=== PATIENT | male | born 1995 | race Caucasian/White ===

== ENCOUNTER 2021-12-19 01:57 | Outpatient (CLI) | payer MEDICAID, SELFPAY ==
[2021-12-19 08:11] LABS: Source Nasal/Nares
[2021-12-19 13:19] LABS: COVID-19 PCR Negative (Negative)
== END 2021-12-19 01:58 | disposition home or self-care (01) ==
LOC: LBO 01:58
PROVIDERS: Visit Provider Surgery
DX: Z20.822 Contact with and (suspected) exposure to COVID-19 (principal); Z01.818 Encounter for other preprocedural examination
CPT/HCPCS: 87635

== ENCOUNTER 2021-12-20 09:08 | Day surgery (SDC) | payer MEDICAID, SELFPAY ==
--- NOTE | 2021-12-20 06:52 | ENDO_ITS ---
Date of service: 12/20/21 Time of Service: 09:38 Endoscopy Report DATE OF PROCEDURE: 12/20/21 PRE-OP DIAGNOSIS: Epigastric pain, N/V POST-OP DIAGNOSIS: other (duodenitis, gastritis and esophagitis) PROCEDURE: EGD with biopsies SURGEON: Celena Ryan ANESTHESIA TYPE: General:No Airway ESTIMATED BLOOD LOSS: 5 PATHOLOGY: other (duodenal, gastric and GE junction bx) COMPLICATIONS: None DISPOSITION: same day INDICATIONS: Go is a pleasant 26-year-old gentleman with a history of alcohol abuse and IV drug abuse who has been clean for 4 months.? He developed upper abdominal pain a few weeks back as well as some nausea and vomiting when he drinks alcohol or has fatty foods.? CT scan revealed no abnormalities.? Ultrasound showed a small amount of sludge in his gallbladder but no other signs of cholecystitis.? He was told that he had biliary dyskinesia.? He has not had a HIDA scan.? We went over the anatomy in detail and over the differential diagnosis.? On examination his pain is mostly epigastric.? With his alcohol use his pain could be from gastritis or gastric ulcers.? He could also have pain because of his hepatitis C. HIDA scan has been ordered. Because Bret would have to be off Methadone for 48 hours and he is at high risk for relapse I discussed with him doing an EGD first and if that is negative then pursuing the HIDA scan. The EGD proceedure was explained and questions were answered over the phone. Risks, benefits and complications were reviewed with him. Risks include but are not limited to bleeding, perforation, aspiration, and adverse reaction to the medications given. Questions were entertained and answered to his satisfaction and he wished to proceed. No guarantees were given or implied. FINDINGS: Inflammation of the duodenum, stomach and esopahgus. PROCEDURE DESCRIPTION: After informed consent was obtained the patient was take to the procedure room and placed in a supine position. Monitors were applied and a time out was done. The patients name, date of , procedure type, allergies to medications and metal in their body was reviewed. A bite block was placed and the patient was sedated. Once sedated and comfortable the gastroscope was advanced through the oropharynx which was grossly normal into the esophagus. The proximal and mid- esophagus were normal. In the distal esophagus there was moderate inflammation noted with a small ulcer. The scope was advanced into the stomach and through the pylorus into the 3rd portion of the duodenum. The duodenum was noted to be inflammaed in the first portion. Biopsies were done. The scope was retracted back into the stomach, were mild inflammation was noted, and biopsies were done to rule out H. pylori. There were no ulcers. The scope was retroflexed. The cardia and fundus were noted to be normal. There was no hiatal hernia noted. The scope was retracted back into the esophagus and biopsies were done of the GE junction to rule out Pal's. The Z line was regular. The GE junction was at 38 cm. The scope was removed and the patient was woken up and taken back to [facility] in stable condition. Follow up: 2 weeks
--- NOTE | 2021-12-20 06:53 | W.PM.DSUDISC ---
Discharge Plan Disposition Patient Disposition: HOME Condition: Good Discharge Details Reason For Visit: Epigastric pain Attending Provider: Celena Ryan Primary Care Provider: Unknown,Unknown Home Meds and New Rx's Prescriptions: New omeprazole 40 mg capsule,delayed release(DR/EC) 40 mg PO BID Qty: 90 0RF sucralfate [Carafate] 1 gram tablet 1 g PO Q6H Qty: 56 0RF Rx Instructions: Take 1 tab 30 minutes before meals and before bedtime Continued methadone 40 mg tablet,soluble 100 mg PO DAILY Discharge Instructions Instructions: Duodenitis (DC), Gastritis (DC), Esophagitis (DC), Diet for Stomach Ulcers and Gastritis (ED) Additional Instructions: Findings: Inflammation in the small intestine, stomach and esophagus Follow up: 2 weeks in the office Medications: please start Omeprazole and Carafate as prescribed Please call if you develop: fevers >101.5 Nausea or Vomiting Abdominal pain that is not transient Rectal bleeding that is more then a tbsp A hard abdomen and inability to pass gas DAY SURGERY UNIT POST ENDOSCOPY INSTRUCTIONS Instructions for everyone who is given Anesthesia: For your safety, please do the following for the next 24 Hours: a. Do not drive or operate dangerous equipment b. Do not drink alcohol beverages or use any recreational drugs for the first 24 hours or while taking pain medications. The medications in your body may have a reaction that can be dangerous. c. Do not make any important decisions or sign any important papers 1. Generally there are no restrictions on your activity after a day or so has gone by, but you may feel a bit fatigued for a few days. 2. After you arrive home you may have a light meal and return to a normal diet as you can tolerate it without feeling sick to your stomach. 3. After surgery, you may feel pain or discomfort. This should be only transient, but if it persists please contact your doctor. 4. If there are any questions regarding the findings of your procedure, please feel free to contact your doctor. 6. If you are unable to contact your doctor with a problem, contact the hospital at [phone]. 7. Continue all your regular medications unless directed otherwise. I understand the above instructions and have no questions. Signature of Patient or Responsible Adult Escort Date/Time Name of Responsible Adult Escort Signature of Nurse Date/Time Referrals: Celena Ryan MD [ [facility] STAFF PHYSICIAN] - Activity:: Activity as Tolerated Diet:: low acid Discharge Orders Discharge Orders: Discharge Order (Routine); Ordered 12/20/21 Ordered By: Celena Ryan
[2021-12-20 09:21] VITALS: BP 120/83; PULSE 68; RESP 17; TEMP 36.2; O2SAT 98
[2021-12-20] MEDS: Lactated Ringers 1,000 ML 80 ML IV (09:36)
--- NOTE | 2021-12-20 09:43 | W.ANESPRE ---
General Info Date of Service Date Performed: 12/20/21 Height: 5 ft 9 in Weight: 74 kg Body Mass Index (BMI): 24.0 Surgical Procedure: Operation Date: 12/20/21 10:50 Proposed Procedure Side Surgeon p Gastroscopy Celena Ryan MD Meds Allergies and Home Medications Allergies Allergy/AdvReac Type Severity Reaction Status Date / Time Penicillins Allergy Unknown Hives Verified 12/20/21 09:20 Home Medication Medication Instructions Recorded methadone 40 mg soluble tablet 100 mg PO DAILY 11/30/21 Current Visit Medications: Current Medications Generic Name Dose Route Start Last Admin Trade Name Freq PRN Reason Stop Dose Admin Hyoscyamine Sulfate 0.125 mg 12/20/21 06:54 Hyoscyamine 0.125 Mg Sl/Oral/Chew SL DIRECTED PRN Ringer's Solution 1,000 mls @ 80 mls/hr 12/20/21 06:00 12/20/21 09:36 IV 01/18/22 23:59 80 mls/hr INFUSION KEZIA Administration IV Miscellaneous Supplies 1 each 12/20/21 06:00 Iv Access IV 01/18/22 23:59 DIRECTED KEZIA Ondansetron HCl 4 mg 12/20/21 06:54 Ondansetron 4 Mg/2 Ml Vial IVP Q4H PRN PRN Nausea / Vomiting Sodium Chloride 0 ml 12/20/21 06:00 Normal Saline Flush 10 Ml Syr IV 01/18/22 23:59 PRN PRN Sodium Chloride 0 ml 12/20/21 06:00 Normal Saline 10 Ml Vial IJ 01/18/22 23:59 DIRECTED PRN Sterile Water 0 ml 12/20/21 06:00 Water,Injection,Sterile 10 Ml Vial IJ 01/18/22 23:59 DIRECTED PRN PFSH Active Problems Active Problems: Problem Status Onset Code Biliary dyskinesia K82.8 Substance abuse F19.10 Nicotine dependence F17.200 Alcohol use Z72.89 Left upper quadrant abdominal pain R10.12 Epigastric pain R10.13 Vomiting R11.10 Upper abdominal pain R10.10 Gallbladder Problem K82.9 Medical History Medical History (Updated 12/20/21 @ 09:41 by Skyla Rausch RN) Asthma Chronic depression Generalized anxiety disorder Hepatitis B Medical History Comments:: pt. said he was awake during his tooth extraction, anesthesia had hurt time to put him asleep Surgical History Surgical History (Updated 12/18/21 @ 15:02 by Skyla Rausch RN) H/O tooth extraction Tobacco Smoking/Tobacco Use Status: Current every day Tobacco Type: cigarettes Alcohol Alcohol Intake: current Alcohol intake frequency: a few times a week Substance Use Substance use: Daily Substance use type: marijuana Vital Signs and Lab Results Vital Signs Most Recent Vital Signs in EMR: Most Recent Vital Signs Temp Pulse Resp BP Pulse Ox 36.2 C L 68 17 120/83 98 12/20/21 09:21 12/20/21 09:21 12/20/21 09:21 12/20/21 09:21 12/20/21 09:21 Lab Results Blood Type / Crossmatch: No Data to Display Complete Blood Count: No Data to Display Complete Metabolic Panel: No Data to Display Liver Function Panel: No Data to Display Coagulation Panel: No Data to Display Cardiac Panel: No Data to Display Arterial Blood Gas: No Data to Display Venous Blood Gas: No Data to Display Pancreas Panel: No Data to Display Thyroid Panel: No Data to Display Infectious Disease: Coronavirus (COVID-19)(PCR) Negative (Negative) 12/19/21 07:55 Coronavirus 2019 Source Nasal/Nares 12/19/21 07:55 Blood Cultures: No Data to Display Toxicology Panel: No Data to Display Anesthesia Assessment and Plan Anesthesia History Personal History: Awareness Under Anesthesia and Other Family History: No Family History of Anesthesia Complications Exercise Tolerance Exercise Tolerance: Metabolic Equivalents>4 Pertinent Negatives Pertinent Negatives: No Symptoms of GERD Cardiac & Pulmonary Exam Cardiac Exam: Normal S1/S2 Heart Sounds Pulmonary Exam: Clear Bilateral Breath Sounds Implantable Cardiac Device Does patient have a Pacemaker or an ICD?: No Airway Exam Known Difficult Airway: No Mallampati Class: 2 Mouth Opening: Normal (> 3cm) Thyromental Distance: Greater than 3 cm Neck Range of Motion: Full ROM Neck Circumference: Normal Teeth Condition: Normal Dentition ASA Classification ASA Score: ASA 2 Emergency Case?: No NPO Status NPO Status: NPO Clears >2 hours, Solids >8 hours Anesthesia Plan Resuscitation Status: Full Code Anesthesia Technique: General Anesthesia Airway Planned: Natural Airway Monitors Used: Standard Monitors
[2021-12-20 09:46] VITALS: BMI 24.0
--- NOTE | 2021-12-20 10:22 | STOM_PTH ---
PATIENT: Go Bethea LOC: [facility] U#:[id number] AGE/SX: 26/M ROOM: RE12/20/[address]: Celena Ryan MD : 1995 BED: DIS: 12/20/2021 SPEC #: [id number] RECD: 12/20/21 12:47 STATUS: SOUMichelle REQ #: [id number] RONAK: 12/20/21 10:[address]: Celena Ryan DEPT: Surgical Specimen RECD BY: Monica Neville ENTERED: 12/20/21 12:49 SP TYPE: STOMACH OTHR DR: Unknown,Unknown Tissues: 1 - BIOPSY BOWEL 2 - STOMACH BIOPSY 3 - ESOPHAGUS BIOPSY Procedures: GROSS AND MICRO LEVEL 4 Comments: [id number]
[2021-12-20 10:47] VITALS: BP 107/57; PULSE 89; RESP 17; TEMP 36.6; O2SAT 98
--- NOTE | 2021-12-20 10:49 | W.ANESPOSTOP ---
Postoperative Evaluation Date, Time and Location Date Performed: 12/20/21 Time Performed: 09:50 Patient Location: Day Surgery Unit Vital Signs Most Recent Imported Vital Signs: Most Recent Vital Signs Temp Pulse Resp BP Pulse Ox 36.6 C 89 17 107/57 L 98 12/20/21 10:47 12/20/21 10:47 12/20/21 10:47 12/20/21 10:47 12/20/21 10:47 Assessment Mental Status: Awake (Alert & Oriented to Patient Baseline) Airway and Respiratory Function: Patent airway with normal (patient baseline) respiratory exam Cardiovascular Function: Hemodynamically Stable Hydration Status: Adequately Hydrated Nausea & Vomiting: No Nausea or Vomiting Pain: Pt. Denies Any Pain Peripheral Nerve Block: Patient did not receive a nerve block
[2021-12-20 10:50] VITALS: BP 105/83; PULSE 74; RESP 17; TEMP 36.6; O2SAT 98
== END 2021-12-20 11:10 | disposition home or self-care (01) ==
PROVIDERS: Visit Provider Surgery
PROC: 0DJ68ZZ Inspection of Stomach, Via Natural or Artificial Opening Endoscopic (ICD-10-PCS; CPT 43235; principal; 2021-12-20 10:45)
DX: K29.70 Gastritis, unspecified, without bleeding (principal); K29.80 Duodenitis without bleeding; K20.90 Esophagitis, unspecified without bleeding; F10.10 Alcohol abuse, uncomplicated; F19.10 Other psychoactive substance abuse, uncomplicated; K22.89 Other specified disease of esophagus; K31.89 Other diseases of stomach and duodenum
CPT/HCPCS: 43239; 88305

== ENCOUNTER 2025-01-26 07:44 | Emergency (ER) | payer MEDICAID, SELFPAY ==
[2025-01-26 07:44] VITALS: BP 111/71; PULSE 66; RESP 16; TEMP 36.8; O2SAT 99
[2025-01-26 07:48] VITALS: BP 111/71; PULSE 66; RESP 16; TEMP 36.8; O2SAT 99
--- NOTE | 2025-01-26 08:03 | W.ED.GENAD ---
Discharge Plan Disposition Patient Disposition: Home Condition: Good Discharge Details Clinical Impression: Laceration of ear canal Primary Care Provider: None,None ED Provider: Kitty Antoine Home Meds and New Rx's Prescriptions: Continued methadone 40 mg tablet,soluble 120 mg PO DAILY Discharge Instructions Instructions: Taking care of cuts, scrapes, and puncture wounds Additional Instructions: As we discussed, your ear canal has a small scratch, likely from your fingernail. This should heal well but please monitor for signs of infection including increased pain, drainage, fevers chills. If you develop these or any other new/worsening symptoms please seek care urgently once again. Some of the sensations you have been having may be alleviated with nasal saline which available [id number], you can use this as needed. Please follow-up with your primary care in 1 to 2 weeks for reevaluation. Tetanus was updated today. HPI General Date/Time Provider Initiated Documentation: 01/26/25 07:50. Limitations to Documentation: no limitations. Information obtained by: patient and RN notes reviewed. History of Present Illness 29 year old M presents to the emergency department with the chief complaint of Right ear pain, concern for bug, described as moderate, with intensity rated at 4. Quality is described as aching, and is localized to the face (right ear ). Patient reports no radiation. Patient started experiencing this minute(s) (20) No relieving factors improve symptom(s), Other factors that worsen symptoms (itching in the ear brought on the pain) . Patient notes no other symptoms.. Patient did receive the following treatments prior to arrival, none Related Data Home Medications ?Medication ?Instructions ?Recorded ?Confirmed methadone 40 mg soluble tablet 120 mg PO DAILY 11/30/21 01/26/25 Allergies Allergy/AdvReac Type Severity Reaction Status Date / Time Penicillins Allergy Unknown Hives Verified 01/26/25 07:48 General Stated Complaint: EarProblem STEFAN: 4 Review of Systems Constitutional Constitutional: Reports as per HPI and Denies headache(s) Eyes Eyes: Reports as per HPI, Denies eye discharge and Denies irritation ENT Ears, Nose, Mouth, and Throat: Reports as per HPI and Denies headache(s) Cardiovascular Cardiovascular: Reports as per HPI, Denies chest pain and Denies dyspnea Respiratory Respiratory: Reports as per HPI and Denies dyspnea Integumentary/Breasts Skin/Breast: Reports as per HPI Neurologic Neurologic: Reports as per HPI and Denies headache(s) Exam Const General: cooperative, healthy appearing, comfortable, no acute distress, well developed and well groomed Nutritional Appearance: average body habitus and well nourished Orientation: alert and awake [facility] Head: normal to inspection, normocephalic and atraumatic Ears: hearing grossly normal bilaterally, TM's normal bilaterally, mastoids normal and other (small 5mm linear abrasion inferior aspect right canal, no bleeding) General nose exam: external nose normal Face and sinus: normal facial exam, sinuses nontender and face symmetric Mouth: oral mucosae normal, lip normal, tongue normal, oropharynx normal and moist mucous membranes Eyes General: appearance normal, both eyes and all related structures Neck Neck: normal visual inspection and no lymphadenopathy Resp Effort & Inspection: normal respiratory effort, able to speak in complete sentences and no respiratory distress Cardio Rate: regular rate Rhythm: regular rhythm Skin Trauma: abrasion (in ear) Course Vital Signs Vital signs: Vital Signs Temperature 36.8 C 01/26/25 07:44 Pulse 66 01/26/25 07:44 Respiratory Rate 16 01/26/25 07:44 Blood Pressure 111/71 01/26/25 07:44 Pulse Oximetry 99 01/26/25 07:44 Temperature 36.8 C 01/26/25 07:48 Temperature Source Oral 01/26/25 07:48 Pulse 66 01/26/25 07:48 Respiratory Rate 16 01/26/25 07:48 Blood Pressure 111/71 01/26/25 07:48 Blood Pressure Position Sitting 01/26/25 07:48 Pulse Oximetry 99 01/26/25 07:48 Oxygen Delivery Method Room Air 01/26/25 07:48 Oxygen Flow Rate 0 01/26/25 07:48 Pain Level 4 01/26/25 07:49 Medical Decision Making Patient is a pleasant 29-year-old gentleman with a past medical history significant for hepatitis B, asthma, chronic depression, anxiety, presenting today with chief complaint of right ear discomfort and questioning if he has a bug lodged in his ear. He reports that he initially began hearing a bad 4 to 5 days ago. States that his significant other recently had a spider in her ear. States that he does not have any discomfort or sensations associated with this but that about 20 minutes prior to arrival he had the sound of a bug in his ear once again and used his finger to try and get it out. Afterwards, noted some blood on his finger and discomfort in the ER prompting him to come in for evaluation.states that he feels like his hearing is slightly diminished. On exam, patient appears anxious but otherwise nontoxic. Hearing is normal. No abnormalities noted in bilateral ears aside from a small scratch on the inferior aspect of the canal on the right ear consistent with the size and shape of the patient's fingernail. The canal is free of cerumen, no insects were appreciated or evidence to suggest debris from recent infestation. No lymphadenopathy The patient I discussed his concerning symptoms. I advised that the discomfort is likely from him cutting himself with his fingernail when he was trying to take out the bug. However, we also discussed the audible concerns he has been having over the past 4 to 5 days. He does state that he has had some rhinorrhea and sinus symptoms, we did discuss using nasal saline as this could be associated with some eustachian tube issues. This also may be associated with his anxiety, particularly given his significant other recently did have a plug in her ear. Return precautions were discussed. The wound was cleansed by nursing staff. Patient is not up-to-date on tetanus so this was also given at today's visit. All of his questions and concerns were addressed and he is in agreement this plan. Esther . [facility] All Active Problems (Updated 01/26/25 @ 08:12 by DOUG Mendoza) Laceration of ear canal (Acute) Gallbladder Problem (Acute) Upper abdominal pain (Acute) Vomiting (Acute) Epigastric pain (Acute) Left upper quadrant abdominal pain (Acute) Alcohol use (Acute) Nicotine dependence (Acute) Substance abuse (Acute) Biliary dyskinesia (Acute) Medical History (Updated 01/26/25 @ 08:12 by DOUG Mendoza) Hepatitis B Asthma Chronic depression Generalized anxiety disorder Surgical History (Updated 12/18/21 @ 15:02 by Skyla Rausch RN) H/O tooth extraction Social History Smoking/Tobacco Use Status: Current every day Tobacco Type: cigarettes Smoking risk assessment performed?: Yes Alcohol Intake: current Alcohol Intake frequency: a few times a week Drug use: Daily Substance use type: marijuana Current gender identity: male Do you feel safe at home: Yes Do you feel safe in your relationship?: Yes
[2025-01-26] MEDS: Diph,Pertuss(Acell),Tet Vac/Pf 0.5 ML SYR IM (08:11)
== END 2025-01-26 08:16 | disposition home or self-care (01) ==
LOC: ER 08:16
PROVIDERS: Emergency Provider Physician Assistant
DX: S00.412A Abrasion of left ear, initial encounter (principal); X58.XXXA Exposure to other specified factors, initial encounter; Y93.E8 Activity, other personal hygiene; Y92.018 Other place in single-family (private) house as the place of occurrence of the external cause; Z23 Encounter for immunization
CPT/HCPCS: 90471; 90715; 99283